=== PATIENT | male | born 1965 | race African-American/Black ===

== ENCOUNTER 2019-05-05 18:14 | Inpatient (IN) | payer MEDICARE ==
[~2019-05-05 18:14] MED LIST: Sodium Chloride 0.9% 1,000 ML BAG ONE
[2019-05-05 19:17] LABS: ALT (SGPT) 24 U/L (8-55); AST (SGOT) 24 U/L (5-34); Albumin 4.3 g/dL (3.5-5.0); Alkaline Phosphatase 61 U/L (40-150); Anion Gap 20 mmol/L (10-20); BUN (Urea Nitrogen) 26 mg/dL (8.4-25.7); Bilirubin, Total 0.4 mg/dL (0.2-1.2); CK (CPK) 277 U/L (30-200); Calc. Creatinine Clearance 0 mL/min (70-130); Calcium 9.9 mg/dL (7.8-10.44); Carbon Dioxide 19 mmol/L (22-29); Chloride 104 mmol/L (98-107); Estimated GFR-MDRD 31; Globulin 3.9 g/dL (2.4-3.5); Glucose 265 mg/dL (70-105); Potassium 4.4 mmol/L (3.5-5.1); Protein, Total 8.2 g/dL (6.0-8.3); Sodium 139 mmol/L (136-145)
[2019-05-05 19:26] LABS: Hemoglobin 13.2 g/dL (14.0-18.0); Mean Corpuscular HGB CONC 33.8 g/dL (32.0-36.0); Mean Corpuscular Hemoglobin 33.2 pg (27.0-31.0); Mean Corpuscular Volume 98.2 fL (78.0-98.0); Mean Platelet Volume 7.7 fL (7.4-10.4); Platelet Count 271 thou/uL (130-400); RBC Distribution Width 11.6 % (11.5-14.5); Red Blood Cell (RBC) Count 3.99 mill/uL (4.70-6.10); White Blood Cell (WBC) Count 10.2 thou/uL (4.8-10.8)
--- NOTE | 2019-05-05 19:28 | RAD ---
XR Chest 1 View Portable HISTORY: Chest pain. Dehydration. COMPARISON: None. FINDINGS: Heart size and mediastinum are within normal limits. The lungs are clear of infiltrates. Po stoperative changes of the cervical spine are noted. IMPRESSION: No active intrathoracic disease.
[2019-05-05 19:37] LABS: Band 3 % (5-11); Lymphocytes 22 % (21-51); Monocytes 5 % (0-10)
[2019-05-05 19:38] LABS: Neutrophil 75 % (42-75); Platelet Morphology Comment Appears Adequate
[2019-05-05 19:39] LABS: Manual Diff?? YES
[2019-05-05 19:40] LABS: MDiff Complete? YES
[2019-05-05 21:47] VITALS: BMI 34.2
[2019-05-05] MEDS ORDERED: Dextrose 50% Abboject 50 ML SYRINGE IVP PRN (22:48)
[2019-05-05] MEDS ORDERED: Dextrose 5% in Water 1,000 ML IV PRN (22:48)
[2019-05-05] MEDS ORDERED: Acetaminophen 325 MG TAB PO PRN (22:49)
[2019-05-05] MEDS: HumaLOG 300 UNITS/3 ML VIAL SC PRN (22:56)
[2019-05-05] MEDS: Sodium Chloride 0.9% 1,000 ML IV SCH (22:57)
[2019-05-05] MEDS ORDERED: Carvedilol 12.5 MG TAB PO SCH (23:00)
[2019-05-05] MEDS ORDERED: Lisinopril 20 MG TAB PO SCH (23:00)
[2019-05-05] MEDS ORDERED: glipiZIDE 5 MG TAB PO SCH (23:15)
[2019-05-06 05:20] LABS: Hemoglobin 12.5 g/dL (14.0-18.0); Mean Corpuscular HGB CONC 34.9 g/dL (32.0-36.0); Mean Corpuscular Hemoglobin 34.2 pg (27.0-31.0); Mean Corpuscular Volume 98.1 fL (78.0-98.0); Mean Platelet Volume 7.6 fL (7.4-10.4); Platelet Count 225 thou/uL (130-400); RBC Distribution Width 11.7 % (11.5-14.5); Red Blood Cell (RBC) Count 3.64 mill/uL (4.70-6.10); White Blood Cell (WBC) Count 9.2 thou/uL (4.8-10.8)
[2019-05-06 05:35] LABS: Anion Gap 15 mmol/L (10-20); BUN (Urea Nitrogen) 24 mg/dL (8.4-25.7); Calc. Creatinine Clearance 75 mL/min (70-130); Calcium 9.1 mg/dL (7.8-10.44); Carbon Dioxide 22 mmol/L (22-29); Chloride 106 mmol/L (98-107); Estimated GFR-MDRD 49; Glucose 212 mg/dL (70-105); Potassium 3.7 mmol/L (3.5-5.1); Sodium 139 mmol/L (136-145)
[2019-05-06 05:38] LABS: Band 1 % (5-11); Eosinophils 1 % (0-10); Lymphocytes 46 % (21-51); MDiff Complete? YES; Macrocytosis SLIGHT = 6-15 cells (100X) (0-5/hpf); Monocytes 4 % (0-10); Neutrophil 48 % (42-75); Platelet Morphology Comment Appears Adequate; RBC Morphology Abnormal
[2019-05-06] MEDS: Sodium Chloride 0.9% 1,000 ML IV SCH ×2 (07:05→14:31)
[2019-05-06] MEDS: HumaLOG 300 UNITS/3 ML VIAL SC PRN ×4 (08:04→21:05)
[2019-05-06] MEDS: Lisinopril 20 MG TAB PO SCH ×2 (08:07→21:06)
[2019-05-06] MEDS: Aspirin 81 mg Enteric Coated Tablet PO SCH (08:07)
[2019-05-06] MEDS: glipiZIDE 5 MG TAB PO SCH ×2 (08:08→17:16)
[2019-05-06] MEDS: Carvedilol 12.5 MG TAB PO SCH ×2 (08:08→21:06)
--- NOTE | 2019-05-06 10:32 | HP ---
Admitted to [facility] on the evening of 05/05/2019. CHIEF COMPLAINT: Weak and dehydrated. HISTORY OF PRESENT ILLNESS: The patient is a 53-year-old Cy male, who has a history of hypertension and diabetes type 2. He is employed as a electric trucker and is independent of all his ADLs and instrumental ADLs. On the day of admission, the patient left his hometown of [place] with load and went to the [facility] , where he had to help tie down a new load. On trip back, he said his air conditioner gave out, it was very hot humid day, and he said he sweated profusely throughout the day. He said he urinated very little. He said he was stopped in [place] and had a blow out. He was outside the truck and he continued to sweat. He said he went into a nearby [employer] there. He became very lightheaded and weak, but did not pass out. He said he was profusely sweating. The employees there called 911, and the patient was brought to the emergency room. In the emergency room, the patient's initial blood pressure was 111/66 with a pulse of 87 and O2 saturation of 97. He appeared very dry, was started on IV fluids with normal saline and was given 2 L of fluid. His lab work showed an H and H of 13.2 and 39.1 with a white cell count of 10,200 with 75% segs, 3% bands, 22% lymphocytes, and a platelet count of 271. His sodium was 139, potassium 4.4, BUN 26, creatinine 2.62, GFR of 31, glucose 265, creatine kinase 277. The patient was admitted to the hospital with diagnosis of dehydration and acute kidney injury. He said he recently had lab work done by his primary care physician and his kidney functions were normal as far as he knows. The patient was admitted to acute care. Through the night, he was continued on IV fluids with normal saline. Now, on the morning of 05/06, he says he feels better, but still just a little bit dizzy. He says yesterday when this all occurred, he sweated profusely throughout the day. He was trying to keep up on his fluids. He said he urinated, he thinks only one time throughout the day and very little then. This morning, he feels better. PAST MEDICAL HISTORY: Diabetes type 2. He does not monitor his home glucose, hypertension, and mild anxiety disorder for which he takes on a rare alprazolam. The patient has had orthoscopic surgery on his right knee, for more just clean up from previous injuries. He has also had an anterior fusion of a portion of the cervical spine. PRESENT MEDICATIONS: 1. Carvedilol 12.5 mg b.i.d. 2. Alprazolam 0.5 mg t.i.d. as needed, rarely takes and does not take when he is driving. 3. Aspirin 81 mg daily. 4. Lisinopril 40 mg b.i.d. 5. Glipizide 5 mg b.i.d. 6. Metformin 1000 mg b.i.d. ALLERGIES: NO KNOWN ALLERGIES. REVIEW OF SYSTEMS: CONSTITUTIONAL: The patient has not had any recent weight gain or loss. He has had no fever or chills. HEAD AND NECK: The patient felt a little dizzy since yesterday. Today, it is a little better, but not totally resolved. RESPIRATORY: No complaints. CARDIOVASCULAR: No complaint. GI: No nausea or vomiting. : The patient said he is urinating more often than what he did yesterday. He has no dysuria. MUSCULOSKELETAL: No muscle cramps. HABITS: Alcohol, none. Tobacco, the patient smokes about 10 cigarettes a day. SOCIAL HISTORY: The patient lives in [place]. Works as a electric trucker. PHYSICAL EXAMINATION: GENERAL: Shows a very pleasant 53-year-old Cy male, who is alert, oriented x3 and appears comfortable and in no distress. VITAL SIGNS: Show a temperature of 97.6, pulse 73, respirations 16, O2 saturation 99% on room air, blood pressure 146/65. His weight is 245. HEENT: Head, normocephalic and atraumatic. Ears, TMs are clear. Nose, normal. Mouth and throat, normal. NECK: Carotids are equal and strong. No bruits. Thyroid not enlarged. LUNGS: Clear. HEART: Regular rate. No murmurs. ABDOMEN: Soft. No organomegaly or tenderness. EXTREMITIES: No edema. SKIN: No rash. NEUROLOGIC: Alert and oriented x3 with no focal weakness. LABORATORY DATA: Lab from the morning of 05/06, shows H and H of 12.5 and 35.7, white cell count 9200 with 48% segs, 46% lymphocytes, and a platelet count of 225. Sodium 139, potassium 3.7, BUN 24, creatinine 1.78, GFR up to 49, glucose 212. ASSESSMENT: 1. Heat prostration. a. Complicated by dehydration. b. Complicated by prerenal azotemia. 2. Diabetes type 2. 3. Hypertension. 4. Cigarette abuse. PLAN: The patient is better this morning. His BUN and creatinine have both dropped. We will continue his IV fluids. We will recheck renal function tomorrow. Encourage him to increase his activities. I have held his metformin and reduced his lisinopril with the acute renal injury. Anticipate, if he does well today, that probably tomorrow he will be able to be discharged. CODE STATUS: Full code. Job ID: [id number] MTDD
[2019-05-06 11:47] LABS: Hemoglobin A1c 8.2 % (4.0-6.0)
[2019-05-07] MEDS: Sodium Chloride 0.9% 1,000 ML IV SCH (01:55)
[2019-05-07 05:18] LABS: Anion Gap 12 mmol/L (10-20); BUN (Urea Nitrogen) 17 mg/dL (8.4-25.7); Calc. Creatinine Clearance 94 mL/min (70-130); Calcium 8.8 mg/dL (7.8-10.44); Carbon Dioxide 23 mmol/L (22-29); Chloride 110 mmol/L (98-107); Estimated GFR-MDRD 63; Glucose 210 mg/dL (70-105); Sodium 141 mmol/L (136-145)
[2019-05-07] MEDS: HumaLOG 300 UNITS/3 ML VIAL SC PRN ×2 (07:58→11:48)
[2019-05-07] MEDS: Carvedilol 12.5 MG TAB PO SCH (07:59)
[2019-05-07] MEDS: glipiZIDE 5 MG TAB PO SCH (07:59)
[2019-05-07] MEDS: Aspirin 81 mg Enteric Coated Tablet PO SCH (07:59)
[2019-05-07] MEDS: Lisinopril 20 MG TAB PO SCH (07:59)
[2019-05-07 11:56] VITALS: BP 153/74; TEMP 97
--- NOTE | 2019-05-07 13:40 | DIS ---
DATE OF ADMISSION: 05/05/2019 DATE OF DISCHARGE: 05/07/2019 Admitted to [facility] acute care on 05/05/2019 and discharged on 2018. FINAL DIAGNOSES: 1. Heat prostration. a. Complicated by dehydration that has resolved. b. Complicated by prerenal azotemia that has resolved. 2. Diabetes mellitus type 2. a. Hemoglobin A1c was 8.2. 3. Hypertension. 4. Cigarette abuse. HISTORY OF PRESENT ILLNESS: The patient is a 53-year-old Cy male, who has a history of hypertension, diabetes, and cigarette abuse. He is from [place] and works as a experienced truck driver. On the day of admission, he had made a haul from [place] up to [place] on a particularly hot day with a high heat index. He had been out in the sun helping to secure his load, and then, on his return trip, his air conditioner gave out. He said it was excessively hot in the truck. He got to a community near [place] and had a blow out. He was out of the truck and he said he had been sweating profusely. He had not urinated much that day. There was a [employer] close to where he had stopped, and he went in to get some water, and there, he said he became very dizzy and just did not feel well. The employees there called 911, and the patient was brought to the emergency room. There, he was evaluated and he was found to be weak. Blood studies showed a BUN of 28, creatinine of 2.6, GFR of 31, glucose of 265. CK of 277. His chest x-ray was clear. He was started on IV fluids and given 2 L of fluid and felt much better. He said he was still weak, still felt dizzy, but not as bad. He had not had any nausea or vomiting. The patient was admitted to the hospital with a diagnosis of heat prostration complicated by dehydration and prerenal azotemia. He was taking metformin, which was stopped due to the low GFR, and his lisinopril was reduced from 40 mg b.i.d. to 20 mg b.i.d. again to the drop in the GFR. He was placed on a mild sliding scale with NovoLog and was continued on IV fluids with normal saline. On the morning of 08/15, he was feeling a lot better, but still a little dizzy and still little weak. Normal saline was continued. His renal function had improved with a drop in the BUN to 24 and creatinine to 1.78. His hemoglobin A1c was measured and was 8.2. He was continued on the normal saline at 125 mL/h. By , he was feeling fine. He said the dizziness resolved. He did not feel weak. He did not feel dizzy. He had been up, ambulating in the hospital without any assistance, and he felt like he was back to his normal. His repeat exam showed his lungs were clear. Heart showed a regular rate. Blood pressure was 152/63, and his FBS was 192. His repeat renal function had improved. His admission BUN was 26, creatinine 2.6, and GFR 31. At discharge on 05/07, his BUN was down to 17, creatinine was 1.43, GFR was up to 65, and glucose was 210. The patient was doing fine. He had the dehydration and prerenal azotemia had resolved. Visited with the patient about proper fluid intake and the heat precautions. The patient was discharged on 05/07/2019 and will follow up with his physician in the [facility]. He should be able to restart his metformin and recommended that he just take reduced dose of the lisinopril 20 mg b.i.d. instead of the 40 b.i.d., and then, he can have follow up on his renal function with his primary care physician. DISPOSITION: DIET: Consistent carbohydrate diet. No added salt. ACTIVITIES: Ad feng. MEDICATIONS: 1. Acetaminophen 325 mg two every 4 hours as needed. 2. Aspirin 81 mg daily. 3. Carvedilol 12.5 mg b.i.d. 4. Glipizide 5 mg b.i.d. 5. Metformin a 1000 mg b.i.d. 6. Lisinopril 40 mg a half tablet b.i.d. FOLLOWUP: The patient should see his primary care physician in followup within 1 to 2 weeks, and have a followup basic metabolic panel. Return to work; the patient may return to work on Friday05/10/2019, with no restrictions. Reviewed with him proper heat precautions. CODE STATUS: Full code. Job ID: [id number] [facility]
== END 2019-05-07 13:11 | disposition home or self-care (01) | DRG 641 ==
LOC: MADERS 18:14 → MADMS 20:12 → OBSVTOIN 20:12
PROVIDERS: ADMIT Family Medicine; ATTEND Family Medicine
DX: E86.0 Dehydration (principal); N17.9 Acute kidney failure, unspecified; T67.5XXA Heat exhaustion, unspecified, initial encounter; R79.89 Other specified abnormal findings of blood chemistry; F17.210 Nicotine dependence, cigarettes, uncomplicated; I10 Essential (primary) hypertension; E11.9 Type 2 diabetes mellitus without complications; F41.9 Anxiety disorder, unspecified; Z98.1 Arthrodesis status; Z79.82 Long term (current) use of aspirin; Z79.84 Long term (current) use of oral hypoglycemic drugs; Z79.899 Other long term (current) drug therapy
CPT/HCPCS: 36415; 36416; 71045; 80048; 80053; 82550; 83036; 84484; 85007; 85025; 85027; 93005; J7050